=== PATIENT | male | born 1980 ===

== ENCOUNTER 2017-11-24 19:51 | Emergency (ER) | payer OTHER ==
[~2017-11-24] VITALS: Ht 170.2 cm; Wt 70.3 kg
[~2017-11-24 19:51] MED LIST: AMOX1TAB12 PO; PERCOCET 5/3251 TAB PO; TORADOL60 MG IM
== END 2017-11-24 22:28 | disposition home or self-care (01) ==
LOC: ER 19:51 → EMR PED 20:06 → ER 22:28
DX: J03.80 Acute tonsillitis due to other specified organisms (principal)

== ENCOUNTER → 2018-02-08 | Emergency (ER) | payer OTHER ==
[~2018-02-08] VITALS: Ht 170.2 cm; Wt 70.3 kg
[~2018-02-08] MED LIST changes: +KETO10TA2 PO; +ORPHENADRINE C100 MG PO
== END | disposition home or self-care (01) ==
LOC: ER 21:47
DX: S80.02XA Contusion of left knee, initial encounter (principal); W18.39XA Other fall on same level, initial encounter; Y93.89 Activity, other specified; Y92.69 Other specified industrial and construction area as the place of occurrence of the external cause; Y99.8 Other external cause status